=== PATIENT | female | born 1960 | race American Indian/Alaskan Native ===

== ENCOUNTER 2017-03-02 23:55 | Emergency (ER) | payer BC ==
[2017-03-03 00:10] VITALS: BP 154/113
[2017-03-03] MEDS ORDERED: MOTRIN PO ONE (02:34)
--- NOTE | 2017-03-03 02:43 | Emergency Department Report ---
ED ENT HPI - General Chief complaint: Skin/Abscess/Foreign Body Stated complaint: FACIAL ABSCESS Time Seen by Provider: 03/03/17 02:24 Source: patient Mode of arrival: Ambulatory Limitations: No Limitations - History of Present Illness Initial comments: This is a 56-year-old female well-nourished with nontoxic or ill in appearance presents with toothache and stated that she believes she has abscess to the upper gingiva. Patient stated he has that is described as aching and rates it as 9/10. Patient has stated she has a history of dental caries and stated she will follow up with her dentist by next week. Patient denies any pus, drainage , facial swelling, fever, chills, nausea, vomiting, stiff neck, headache, blurry vision, abdominal pain, chest pain, shortness of breath, numbness or tingling. Patient denies any allergies. History of hypertension, and GERD. Patient state he follows up with her primary care doctor and it takes Nifedipine for her hypertension. Patient also states she has a follow-up appointment Friday for her blood pressure. Patient stated Lortab as well as her pain. MD complaint: tooth pain -: Gradual, week(s) (2) Location: tooth # (7, 11) Severity: mild Severity scale (0 -10): 9 Quality: aching Consistency: constant Improves with: other (Lortab) Worsens with: none Context- Dental: history of dental caries, poor dental care Associated Symptoms: gum swelling, toothache. denies: fever, cough, pain with swallowing, sore throat, tinnitus, hearing loss, discharge from ear, rhinorrhea - Related Data Previous Rx's Medication Instructions Recorded Last Taken Type Fluconazole [Diflucan TAB] 150 mg PO ONCE #1 tablet 10/01/16 Unknown Rx Sulfamethoxazole/Trimethoprim 1 each PO BID #20 tablet 10/01/16 Unknown Rx [Bactrim DS TAB] Amoxicillin/K Clav Tab [Augmentin 1 tab PO Q12HR #20 tab 03/03/17 Unknown Rx 875 mg] Ibuprofen [Motrin 600 MG tab] 600 mg PO Q8H PRN #20 tablet 03/03/17 Unknown Rx Allergies Allergy/AdvReac Type Severity Reaction Status Date / Time No Known Allergies Allergy Unverified 10/01/16 17:03 ED Dental HPI - General Chief complaint: Skin/Abscess/Foreign Body Stated complaint: FACIAL ABSCESS Time Seen by Provider: 03/03/17 02:24 Source: patient Mode of arrival: Ambulatory Limitations: No Limitations - Related Data Previous Rx's Medication Instructions Recorded Last Taken Type Fluconazole [Diflucan TAB] 150 mg PO ONCE #1 tablet 10/01/16 Unknown Rx Sulfamethoxazole/Trimethoprim 1 each PO BID #20 tablet 10/01/16 Unknown Rx [Bactrim DS TAB] Amoxicillin/K Clav Tab [Augmentin 1 tab PO Q12HR #20 tab 03/03/17 Unknown Rx 875 mg] Ibuprofen [Motrin 600 MG tab] 600 mg PO Q8H PRN #20 tablet 03/03/17 Unknown Rx Allergies Allergy/AdvReac Type Severity Reaction Status Date / Time No Known Allergies Allergy Unverified 10/01/16 17:03 ED Review of Systems ROS: Stated complaint: FACIAL ABSCESS Other details as noted in HPI Constitutional: denies: chills, fever Eyes: denies: eye pain, eye discharge, vision change ENT: denies: ear pain, throat pain Respiratory: denies: cough, shortness of breath, wheezing Cardiovascular: denies: chest pain, palpitations Endocrine: no symptoms reported Gastrointestinal: denies: abdominal pain, nausea, diarrhea Genitourinary: denies: urgency, dysuria, discharge Musculoskeletal: denies: back pain, joint swelling, arthralgia Skin: denies: rash, lesions Neurological: denies: headache, weakness, paresthesias Psychiatric: denies: anxiety, depression Hematological/Lymphatic: denies: easy bleeding, easy bruising ED Past Medical Hx - Past Medical History Hx Hypertension: Yes Hx GERD: Yes Additional medical history: TENDONITIS - Surgical History Additional Surgical History: TUBAL LIGATION. TONSILLECTOMY - Social History Smoking Status: Current Every Day Smoker Substance Use Type: None - Medications Home Medications: Home Medications Medication Instructions Recorded Confirmed Last Taken Type Fluconazole [Diflucan TAB] 150 mg PO ONCE #1 tablet 10/01/16 Unknown Rx Sulfamethoxazole/Trimethoprim 1 each PO BID #20 tablet 10/01/16 Unknown Rx [Bactrim DS TAB] Amoxicillin/K Clav Tab [Augmentin 1 tab PO Q12HR #20 tab 03/03/17 Unknown Rx 875 mg] Ibuprofen [Motrin 600 MG tab] 600 mg PO Q8H PRN #20 tablet 03/03/17 Unknown Rx ED Physical Exam - General Limitations: No Limitations General appearance: alert, in no apparent distress - Head Head exam: Present: atraumatic, normocephalic, normal inspection - Eye Eye exam: Present: normal appearance, PERRL, EOMI. Absent: scleral icterus, conjunctival injection, nystagmus, periorbital swelling, periorbital tenderness Pupils: Present: normal accommodation - ENT ENT exam: Present: mucous membranes moist, TM's normal bilaterally, normal external ear exam - Expanded ENT Exam Expanded Mouth exam: Present: normal external inspection, tongue normal. Absent: drooling, trismus, muffled voice, tongue elevation, laceration Teeth exam: Present: normal inspection, dental caries, dental tenderness # (7, 11), gingival enlargement, other (Uvula midline. No abscess noted. no facial swelling.). Absent: fractured tooth # Throat exam: Positive: normal inspection. Negative: tonsillar erythema, tonsillomegaly, tonsillar exudate, R peritonsillar mass, L peritonsillar mass - Neck Neck exam: Present: normal inspection, full ROM. Absent: tenderness, meningismus, lymphadenopathy, thyromegaly - Respiratory Respiratory exam: Present: normal lung sounds bilaterally. Absent: respiratory distress, wheezes, rales, rhonchi, stridor, chest wall tenderness, accessory muscle use, decreased breath sounds, prolonged expiratory - Cardiovascular Cardiovascular Exam: Present: regular rate, normal rhythm, normal heart sounds. Absent: bradycardia, tachycardia, irregular rhythm, systolic murmur, diastolic murmur, rubs, gallop - GI/Abdominal GI/Abdominal exam: Present: soft, normal bowel sounds. Absent: distended, tenderness, guarding, rebound, rigid, diminished bowel sounds - Extremities Exam Extremities exam: Present: normal inspection, full ROM, normal capillary refill. Absent: tenderness, pedal edema, joint swelling, calf tenderness - Back Exam Back exam: Present: normal inspection, full ROM. Absent: tenderness, CVA tenderness (R), CVA tenderness (L), muscle spasm, paraspinal tenderness, vertebral tenderness, rash noted - Neurological Exam Neurological exam: Present: alert, oriented X3, CN II-XII intact, normal gait, reflexes normal - Psychiatric Psychiatric exam: Present: normal affect, normal mood - Skin Skin exam: Present: warm, dry, intact, normal color. Absent: rash ED Course Vital Signs 07/10/17 07/10/17 00:08 02:40 Temperature 98.1 F 98.5 F Pulse Rate 116 H 88 Respiratory 18 Rate Blood Pressure 154/113 O2 Sat by Pulse 100 100 Oximetry - Reevaluation(s) Reevaluation #1: 03/03/17 02:46 PAtient is sitting and is able to complete full sentence with no signs of distress. ED Medical Decision Making - Medical Decision Making ED course: This is a 56-year-old female that presents with toothache and gingivitis 1- patient was examined by myself. No signs of fluctuance or abscess to the face or gingiva region. No pus or drainage. 2- patient received ibuprofen 800 mg by mouth in ED. 3- patient received Augmentin and ibuprofen at the time of discharge and was instructed to follow-up with a dentist in 24 hours or is symptoms of difficulty swallowing, facial swelling, shortness of breath, fever, chills, chest pain, numbness, tingling, stiff neck or headache return to emergency room as soon as possible. 4- at time time of discharge, the patient does not seem toxic or ill in appearance. No acute signs of distress noted. Patient agrees to discharge treatment plan of care. No further questions noted by the patient. Critical care attestation.: If time is entered above; I have spent that time in minutes in the direct care of this critically ill patient, excluding procedure time. ED Disposition Clinical Impression: Toothache, Gingivitis, Dental caries Disposition: DC-01 TO HOME OR SELFCARE Is pt being admited?: No Does the pt Need Aspirin: No Condition: Stable Instructions: Ibuprofen (By mouth), Amoxicillin/Clavulanate Potassium (By mouth ), Dental Caries (ED), Gingivitis (ED), Toothache (ED) Additional Instructions: follow-up with a dentist in 24 hours or is symptoms of difficulty swallowing, facial swelling, shortness of breath, fever, chills, chest pain, numbness, tingling, stiff neck or headache return to emergency room as soon as possible. Take full course of antibiotics as prescribed. Prescriptions: Amoxicillin/K Clav Tab [Augmentin 875 mg] 1 tab PO Q12HR #20 tab Ibuprofen [Motrin 600 MG tab] 600 mg PO Q8H PRN #20 tablet PRN Reason: Pain Referrals: PRIMARY CARE, [Primary Care Provider] - 3-5 Days [facility] [Outside] - 24 Hours MARGUERITE CERDA JR, MD [Staff Physician] - 3-5 Days [facility] [Outside] - 3-5 Days Forms: Work/School Release Form(ED)
== END 2017-03-03 02:58 | disposition home or self-care (01) ==
LOC: ED 23:55
DX: K02.9 Dental caries, unspecified (principal); K05.10 Chronic gingivitis, plaque induced; I10 Essential (primary) hypertension; K21.9 Gastro-esophageal reflux disease without esophagitis; F17.200 Nicotine dependence, unspecified, uncomplicated
CPT/HCPCS: 99282

== ENCOUNTER 2018-05-18 15:33 | Outpatient (CLI) | payer OTHER | END 2018-05-18 15:34 | disposition home or self-care (01) | LOC: LABHHL 15:33 | PROVIDERS: ATTEND Surgery | DX: C50.911 Malignant neoplasm of unspecified site of right female breast (principal); I10 Essential (primary) hypertension; K21.9 Gastro-esophageal reflux disease without esophagitis | CPT/HCPCS: 88305; 88342; 88361 ==

== ENCOUNTER 2018-05-29 13:16 | Outpatient (CLI) | payer MEDICAID ==
--- NOTE | 2018-05-29 14:38 | Ultrasound Report ---
ULTRASOUND GUIDED NEEDLE CORE BIOPSY OF A RIGHT AXILLARY LYMPH NODE WITH CLIP PLACEMENT : 05/29/18 13:16:00 CLINICAL: Recently diagnosed right breast cancer. FINDINGS: The procedure was explained to the patient and informed consent was obtained. Ultrasound demonstrated a mildly suspicious lymph node. The skin in the axilla was prepped with Betadine and anesthetized with 1% lidocaine. Ultrasound guided needle core biopsy of the lymph node was performed through a small dermatotomy using 2% lidocaine with epinephrine for deep anesthesia and a 18-gauge Achieve biopsy device. 3 samples were obtained and placed in formalin. A clip was deployed within the lymph node. Hemostasis was achieved with minimal pressure and a sterile dressing was applied. The patient tolerated the procedure well and there were no apparent complications. She was discharged in good condition and was given instructions for wound care and followup. IMPRESSION: Uncomplicated ultrasound-guided needle core biopsy of a right lymph node with concordant clip placement.
== END 2018-05-29 13:17 | disposition home or self-care (01) ==
LOC: SPVWC 13:16
PROVIDERS: ATTEND Surgery
DX: I89.9 Noninfective disorder of lymphatic vessels and lymph nodes, unspecified (principal); C50.411 Malignant neoplasm of upper-outer quadrant of right female breast; F17.210 Nicotine dependence, cigarettes, uncomplicated; I10 Essential (primary) hypertension; K21.9 Gastro-esophageal reflux disease without esophagitis; Z79.899 Other long term (current) drug therapy
CPT/HCPCS: 38505; 76942; 88305

== ENCOUNTER 2018-06-02 06:54 | Day surgery (SDC) | payer MEDICAID, OTHER ==
[~2018-06-02 06:54] MED LIST: HEPARIN 10,000 UNITS/10 ML IV ONE
[2018-06-02] MEDS ORDERED: LACTATED RINGERS 1,000 ML IV SCH (08:26)
[2018-06-02] MEDS ORDERED: ANCEF/STERILE WATER 2 GM/20 ML IV NR (08:26)
[2018-06-02] MEDS ORDERED: VERSED IV NR (09:11)
[2018-06-02] MEDS ORDERED: SUBLIMAZE IV PRN (09:25)
--- NOTE | 2018-06-02 09:25 | Anesthesia Day of Surgery ---
Anesthesia Day of Surgery - Day of Surgery Patient Examined: Yes Patient H&P Reviewed: Yes Patient is NPO: Yes
--- NOTE | 2018-06-02 09:25 | Anesthesia Consultation ---
Anesthesia Consult and Med Hx Date of service: 06/02/18 - Airway Anesthetic Teeth Evaluation: Poor, Chipped, Partials ROM Head & Neck: Adequate Mental/Hyoid Distance: Adequate Mallampati Class: Class II Intubation Access Assessment: Probably Good - Pulmonary Exam CTA: Yes - Cardiac Exam Cardiac Exam: RRR - Pre-Operative Health Status ASA Pre-Surgery Classification: ASA3 Proposed Anesthetic Plan: General, Local, MAC - Pre-Anesthesia Comment Pre-Anesthesia Comments: GA w/ LMA vs local/MAC pending discussion with surgeon. - Pulmonary Hx Smoking: Yes (1/2 PDD x 20yrs) Hx Asthma: No Hx Respiratory Symptoms: No COPD: No - Cardiovascular System Hx Hypertension: Yes Hx Heart Attack/AMI: No - Central Nervous System Hx Seizures: No CVA: No Hx Back Pain: Yes Hx Psychiatric Problems: Yes (depression) - Gastrointestinal Hx Gastroesophageal Reflux Disease: No - Endocrine Hx Renal Disease: No Hx Liver Disease: No Hx Insulin Dependent Diabetes: No Hx Non-Insulin Dependent Diabetes: No Hx Thyroid Disease: No - Other Systems Hx Alcohol Use: No Hx Substance Use: No Hx Cancer: Yes (breast) - Additional Comments Anesthesia Medical History Comments: No prior anesthetic complications.
[2018-06-02] MEDS ORDERED: XYLOCAINE MPF 2% ONE (10:02)
[2018-06-02] MEDS ORDERED: DIPRIVAN 10 MG/ML IV ONE (10:02)
[2018-06-02] MEDS ORDERED: SUBLIMAZE ONE (10:02)
[2018-06-02] MEDS ORDERED: XYLOCAINE 1% 20 mL ONE (10:39)
[2018-06-02] MEDS ORDERED: HEPARIN 10,000 UNITS/10 ML ONE (10:39)
[2018-06-02] MEDS ORDERED: NACL 0.9% 250ML 250 ML ONE (10:39)
[2018-06-02] MEDS ORDERED: MARCAINE 0.25% INFILTRATI ONE ×3 (10:39→11:15)
[2018-06-02] MEDS ORDERED: XYLOCAINE 1% 20 mL INFILTRATI ONE ×2 (11:15)
[2018-06-02] MEDS ORDERED: ZOFRAN ONE (11:22)
[2018-06-02] MEDS ORDERED: NEO SYNEPHRINE/NS Syringe(OR USE) IV ONE (11:22)
[2018-06-02] MEDS ORDERED: DECADRON ONE (11:22)
[2018-06-02] MEDS ORDERED: HEPARIN 10,000 UNITS/10 ML IV ONE ×2 (11:23→11:40)
[2018-06-02] MEDS ORDERED: NACL 0.9% IV ONE (11:23)
--- NOTE | 2018-06-02 12:11 | Operative Report ---
Operative Report Operative Report: Date of operation: 06/02/18 Reoperative diagnosis: Right-sided breast cancer Postoperative diagnosis: Same as above Procedure performed: Placement of left subclavian Port-A-Cath with ultrasound guidance, fluoroscopy Surgeon: Sandy Thomson DO Anesthesia: LMA, local Findings: On intraoperative CXR - good placement of port and no PTX EBL: <10cc Complications: none Disposition: stable to PACU HPI and indication: Patient is a 58-year-old female who has recently been diagnosed with right-sided breast cancer. The patient is seen by Dr. Vogt and deemed a candidate for chemotherapy. All of the risks associated with the procedure were discussed with the patient including but not limited to pneumothorax, infection, bleeding, malpositioned port, injury to other structures. The patient understands and all questions were answered. Consent was signed and placed on chart. Procedure in detail: The patient was identified in the preoperative area, taken back to operating room, placed on operating table in supine position. After anesthesia was induced both arms were tucked and upper chest and neck were prepped and draped in usual sterile fashion. A timeout was performed. The was placed in Trendelenburg position. Local anesthetic was infiltrated into the skin at the intended puncture site. The left subclavian vein was imaged on the portable ultrasound and was accessed on the first stick. There was return of dark red, nonpulsatile blood. The wire was threaded under fluoroscopy without resistance the needle was then removed. Using fluoroscopy, the positioning of the wire was identified and the wire was going into the internal jugular vein. This was pulled back under continuous fluoroscopy, however the wire was dislodged from the vessel and removed from the skin. Pressure was held at the site. A second attempt was made to access the left subclavian vein, which was successful after the first stick. The wire was threaded without resistance in the positioning confirmed in the right atrium on fluoroscopy. Local anesthetic was infiltrated into the intended incision site. Using a 15 blade, an incision was made in the LEFT upper chest and dissection carried down through the skin and subcutaneous tissue using Bovie electrocautery. Hemostasis was achieved along the way. A pocket for the port was then created bluntly and with electrocautery. The catheter was flushed and tunneled from the pocket to the wire. A breakaway catheter/dilator sheath then inserted over the wire under fluoroscopy, and the wire and dilator removed. The catheter was then inserted through the breakaway catheter which was then removed. The catheter sat flush under the skin. Using continuous fluoroscopy, the catheter was pulled back until the tip was visualized in the right atrium. The catheter was then cut to size and the port attached in the usual fashion. The port was then sutured into place to the pre-pectoral fascia using 2-0 Vicryl interrupted sutures. The wound was irrigated and hemostasis ensured. The port was tested with heparinized saline and there was return of blood and it flushed easily. The port was then instilled with 3000 units of straight heparin. The deep dermal layer was then closed with interrupted 3-0 Vicryl stitches. The skin incisions were closed with 4-0 Monocryl subcuticular stitches and skin glue. The port was left accessed with a Melara needle. The needle entry site was dressed with a Biopatch and covered with Tegaderm. Intraoperative chest x-ray did show good positioning of the port, without evidence of pneumothorax. At the end of the case, all sponge, instrument, sharp counts were correct 2. The patient was awoken from anesthesia and taken to PACU in stable condition.
--- NOTE | 2018-06-02 12:15 | Fluoroscopy Report ---
AP CHEST: HISTORY: Breast cancer, Oicnlg-p-Wwoe placement AP view of the chest demonstrates a normal mediastinal and cardiac contour with clear lungs and normal bony and soft tissue structures. The left subclavian Gubieh-v-Wqlf terminates in the right atrium. No pneumothorax. IMPRESSION: Unremarkable AP chest. Zbtcie-h-Cuey is described.
--- NOTE | 2018-06-02 12:16 | Short Stay Summary ---
Short Stay Documentation Date of service: 06/02/18 - History Principal diagnosis: right breast cancer H&P: obtained from office - Allergies and Medications Current Medications: Allergies No Known Allergies Allergy (Verified 06/01/18 14:48) Home Medications Medication Instructions Recorded Confirmed Last Taken Type Amitriptyline [Elavil] 50 mg PO QHS 06/01/18 06/01/18 06/01/18 History RX: NIFEdipine [Nifedipine ER] 90 mg PO DAILY 06/01/18 06/02/18 05/31/18 History Sertraline [Zoloft] 50 mg PO QDAY 06/01/18 06/01/18 06/01/18 History Active Medications Cefazolin Sodium (Ancef/Sterile Water 2 Gm/20 Ml) 2 gm IV PREOP NR Stop: 06/02/18 23:59 Fentanyl (Sublimaze) 50 mcg IV Q15MIN PRN PRN Reason: Pain , Severe (7-10) Stop: 06/02/18 16:00 Lactated Ringer's (Lactated Ringers) 1,000 mls @ 42 mls/hr IV DIRECT CORA Last Admin: 06/02/18 09:05 Dose: 42 mls/hr Midazolam HCl (Versed) 2 mg IV PREOP NR Stop: 06/02/18 23:59 Last Admin: 06/02/18 09:32 Dose: 2 mg - Brief post op/procedure progress note Date of procedure: 06/02/18 Pre-op diagnosis: right breast cancer Post-op diagnosis: same Procedure: L subclavian port a cath placement with ultrasound guidance, fluoroscopy Anesthesia: GETA, local Findings: good placement of the port on post op CXR without evidence of PTX Surgeon: RAEGAN BRIDGES Estimated blood loss: minimal Pathology: none Condition: stable - Hospital course Hospital course: Pt was observed in the PACU and discharged to home in stable condition once criteria was met. - Disposition Condition at discharge: Good Disposition: DC-01 TO HOME OR SELFCARE Short Stay Discharge Plan Activity: no restrictions Diet: regular Wound: open to air (may shower tomorrow, pat incisions dry do not scrub.) Additional Instructions: Call surgeon's office if you have fever>100.4, drainage or redness around port site. Follow up with: RYANNE SANZ MD [Primary Care Provider] - 7 Days MOIZ SMITH MD [Staff Physician] - 7 Days Prescriptions: RX: Ibuprofen [Ibu] 800 mg PO Q8H PRN #30 tablet PRN Reason: Pain, Moderate (4-6)
--- NOTE | 2018-06-02 15:10 | Post Anesthesia Evaluation ---
- Post Anesthesia Evaluation Patient Participated: Yes Airway Patent: Yes Stable Respiratory Function: Yes Nausea/Vomiting: No Temp > 96.8F: Yes Pain Manageable: Yes Adequeate Hydration: Yes Anesthesia Complications: No
[2018-06-02 16:08] VITALS: BP 127/77
== END 2018-06-02 06:55 | disposition home or self-care (01) ==
LOC: OR 06:54
PROVIDERS: ATTEND Surgery
DX: C50.911 Malignant neoplasm of unspecified site of right female breast (principal); K21.9 Gastro-esophageal reflux disease without esophagitis; I10 Essential (primary) hypertension; F32.9 Major depressive disorder, single episode, unspecified; F17.210 Nicotine dependence, cigarettes, uncomplicated; Z79.899 Other long term (current) drug therapy; Z98.51 Tubal ligation status; Z80.1 Family history of malignant neoplasm of trachea, bronchus and lung
CPT/HCPCS: 36561; 77001; C1788; J0690; J1100; J1644; J2250; J2370; J2405; J2704; J3010; J7050; J7120

== ENCOUNTER 2018-09-09 06:34 | Day surgery (SDC) | payer OTHER ==
[~2018-09-09 06:34] MED LIST changes: -HEPARIN 10,000 UNITS/10 ML IV ONE; +LACTATED RINGERS 1,000 ML IV SCH; +VERSED IV NR
[2018-09-09] MEDS ORDERED: SUBLIMAZE IV NR (07:00)
[2018-09-09] MEDS ORDERED: NEURONTIN PO NR (07:00)
[2018-09-09] MEDS ORDERED: METHYLENE BLUE ONE (07:30)
[2018-09-09] MEDS ORDERED: XYLOCAINE 1% 20 mL ONE ×2 (07:31→07:56)
[2018-09-09] MEDS ORDERED: MARCAINE 0.25% INFILTRATI ONE ×2 (07:31→08:01)
[2018-09-09] MEDS ORDERED: XYLOCAINE 1% 20 mL INFILTRATI ONE (07:36)
[2018-09-09] MEDS ORDERED: ANCEF/STERILE WATER 2 GM/20 ML IV NR (07:38)
--- NOTE | 2018-09-09 08:25 | Ultrasound Report ---
ULTRASOUND-GUIDED NEEDLE LOCALIZATION AND HOOKWIRE PLACEMENT RIGHT BREAST:09/09/18 CLINICAL: Right breast cancer status post chemotherapy. The cancer was located at 12 o'clock 12 cm from the nipple. COMPARISON: 06/09/18 MRI FINDINGS: Ultrasound demonstrated a hydro-anayeli biopsy clip and no residual mass at the site of the treated cancer. Using ultrasound guidance, 1% lidocaine local anesthesia and sterile technique, a 5.0-cm Mcdonald needle with a hookwire was placed to localize the hydro-anayeli biopsy clip. The hookwire was deployed and the needle was removed. Satisfactory placement was confirmed with a single MLO mammographic view. The patient tolerated the procedure well and there were no apparent complications. IMPRESSION: Uncomplicated hookwire placement right breast.
--- NOTE | 2018-09-09 08:28 | Mammography Report ---
RIGHT DIGITAL DIAGNOSTIC MAMMOGRAM : 09/09/18 CLINICAL: Right breast cancer at 12 o'clock 15 cm from the nipple. COMPARISON:08/10/18 FINDINGS: A single MLO view demonstrates the hookwire at a hydro-anayeli clip at 12 o'clock approximately 15.0 cm from the nipple.No residual mass and clip. IMPRESSION: Satisfactory localization of the known cancer. BI-RADS CATEGORY: 6--Known Cancer ACR BI-RADS MAMMOGRAPHIC CODES: 0 = Needs additional imaging evaluation; 1 = Negative; 2 = Benign; 3 = Probably benign; 4 = Suspicious; 5 = Malignant; 6 = Known biopsy-proven malignancy COMMENT: 1. Dense breast tissue, i.e., adenosis, fibrocystic changes, etc., may obscure an underlying neoplasm. 2. Approximately 10% of cancers are not detected with mammography. 3. A negative mammography report should not delay biopsy if a clinically suspicious mass is present. COMMENT: Patient follow-up letters are generated by our [employer] application.
[2018-09-09] MEDS ORDERED: DECADRON ONE ×2 (08:30→09:55)
[2018-09-09] MEDS ORDERED: SUBLIMAZE ONE ×3 (08:54→11:43)
[2018-09-09] MEDS ORDERED: VERSED ONE (08:54)
[2018-09-09] MEDS ORDERED: DIPRIVAN 10 MG/ML IV ONE (08:55)
[2018-09-09] MEDS ORDERED: XYLOCAINE MPF 2% ONE (08:55)
--- NOTE | 2018-09-09 09:05 | Progress Note ---
Subjective Date of service: 09/09/18 (block note) Principal diagnosis: breast cancer Interval history: 58 y/o female presenting for R simple mastectomy. Surgeon requests block for postop analgesia. Informed consent obtained. Sitting position R erector spinae plane block performed under clean conditions at T4 after chlorhexidine prep. 30 ml 0.25% bupivacaine with 4 mg decadron injected under ultrasound guidance via 21 ga b bevel needle. Pt laid supine and R PECS 1 block performed under clean conditions and ultrasound guidance with 15 ml 0.25% bupivacaine. Pt tolerated well with midazolam sedation. Objective - Constitutional Vitals: Vital Signs - 12hr 09/09/18 09/09/18 06:55 07:53 Temperature 98.3 F 98.3 F Pulse Rate 85 85 Respiratory 16 16 Rate Blood Pressure 114/73 114/73 O2 Sat by Pulse 98 98 Oximetry
--- NOTE | 2018-09-09 09:25 | Anesthesia Day of Surgery ---
Anesthesia Day of Surgery - Day of Surgery Patient Examined: Yes Patient H&P Reviewed: Yes Patient is NPO: Yes
--- NOTE | 2018-09-09 09:25 | Anesthesia Consultation ---
Anesthesia Consult and Med Hx Date of service: 09/09/18 - Airway Anesthetic Teeth Evaluation: Partials ROM Head & Neck: Adequate Mental/Hyoid Distance: Adequate Mallampati Class: Class II Intubation Access Assessment: Probably Good - Pulmonary Exam CTA: Yes - Cardiac Exam Cardiac Exam: RRR - Pre-Operative Health Status ASA Pre-Surgery Classification: ASA3 Proposed Anesthetic Plan: General Nerve Block: PECS I, erector spinae plane - Pulmonary Hx Smoking: Yes (1/2 PDD x 20yrs; quit 6 months ago) Hx Asthma: No Hx Respiratory Symptoms: No (no recent cough or flu-like symptoms) COPD: No Hx Sleep Apnea: No (LIN PRE SCREEN LOW RISK) - Cardiovascular System Hx Hypertension: Yes (took antihypertensives this morning) Hx Heart Attack/AMI: No - Central Nervous System Hx Seizures: No CVA: No Hx Back Pain: Yes - Gastrointestinal Hx Gastroesophageal Reflux Disease: No - Endocrine Hx Renal Disease: No Hx Liver Disease: No Hx Insulin Dependent Diabetes: No Hx Non-Insulin Dependent Diabetes: No Hx Thyroid Disease: No - Other Systems Hx Cancer: Yes (breast) Hx Obesity: No - Additional Comments Anesthesia Medical History Comments: No hx anesthetic complications. Consented for pre-op lauryn block for postop analgesia.
[2018-09-09] MEDS ORDERED: METHYLENE BLUE IV ONE (09:46)
[2018-09-09] MEDS ORDERED: NACL INFILTRATI ONE (09:46)
[2018-09-09] MEDS ORDERED: ZOFRAN ONE (09:55)
[2018-09-09] MEDS ORDERED: NACL 0.9% IR ONE (10:37)
[2018-09-09] MEDS ORDERED: LACTATED RINGERS 1,000 ML ONE (10:53)
--- NOTE | 2018-09-09 11:34 | Mammography Report ---
SPECIMEN RADIOGRAPH RIGHT BREAST: 09/09/18 11:23 CLINICAL: Surgical excision of a known cancer. FINDINGS: The targeted lesion with a biopsy clip and a hookwire are identified within the specimen. IMPRESSION: Excision of the targeted lesion.
[2018-09-09] MEDS ORDERED: DILAUDID ONE (11:46)
[2018-09-09] MEDS: DILAUDID IV PRN ×2 (11:50→11:55)
--- NOTE | 2018-09-09 11:50 | Operative Report ---
Operative Report Operative Report: September 09, 2018 Preoperative diagnosis: Right breast cancer of the upper inner quadrant Postoperative diagnosis: Same Procedure: Right needle localization partial mastectomy of the upper inner quadrant and SLNB Surgeon: Dasia Boss MD Anesthesia: General Findings: Right wire and clip present within radiograph specimen; x 3 SLNs Complications: None EBL: Minimal Disposition: PACU in good condition Indications for operative procedure: This is a 58 year old lady with newly diagnosed right breast cancer of the upper inner quadrant, Stage II [id number] triple negative, at the 12:00 position 12 cm from the nipple. Recommendations are to proceed with breast conservation. She partially complete neoadjuvant chemotherapy with course complicated with colitis and hospitalization. She will complete Taxol following surgery, recommendations were to proceed with surgery and then completion of chemotherapy followed by radiation therapy. Recent mammogram with prior breast cancer mass not present. She wished to proceed with the above procedure. Procedure in detail: The patient was taken to radiology for wire placement for localization known area of cancer. Anesthesia placed right pectoral block. Patient was then taken to the operating room. Gen. anesthesia was administered. The right nipple was injected with radioisotope adn 1 cc of saline mixed with methylene blue. Right breast and axilla were prepped and draped in the normal sterile operative fashion. The wire was identified. Timeout was performed. Ultrasound was used to anayeli the area of incision as well. Gamma probe was inserted into the axilla. The area of hot spot was identified. A right axillary incision was made with a 15 blade knife with dissection taken down to the subcutaneous tissues. The axillary fascia was opened with the Bovie cautery. 3 SLNs were identified. All remaining counts were less than 10% of the highest cou nt. Lymph nodes were sent to pathology for permanent processing. Hemostasis was obtained in the right axillary cavity. Axillary cavity was appropriately irrigated and suctioned. Hemostasis was noted. Axillary fascia was approximated and closed using interrupted 3-0 Vicryl and the skin brought together and closed using a running 4-0 Monocryl followed by skin affix. Attention was then taken towards the right breast. A 12:00 breast incision was made with a 15 blade knife and dissection taken down to subcutaneous tissues. First began raising of the superior flap with dissection take down to the p ectoralis muscle, followed by raising of the inferior flap with removal of the wire from the skin followed by raising of the medial flap and lateral flap with all flaps taken down to the pectoralis muscle. The breast area of concern was appropriately removed posteriorly from the pectoralis muscle with the aid of the Bovie cautery. The wire was not encountered. Specimen was marked and then sent to pathology and radiology; radiograph specimen with wire and clip present. Breast cavity was irrigated and hemostasis was obtained. The posterior deep breast tissues were approximated and closed using interrupted 3-0 Vicryl. The subcutaneous tissues were approximated and closed using interrupted 3-0 Vicryl followed by closing of the skin with a running 4-0 Monocryl and skin affix. The patient tolerated surgery very well and she was awaken from anesthesia without any complication and transported to PACU in good condition.
--- NOTE | 2018-09-09 11:52 | Short Stay Summary ---
Short Stay Documentation Date of service: 09/09/18 - History H&P: obtained from office - Allergies and Medications Current Medications: Allergies No Known Allergies Allergy (Verified 06/01/18 14:48) Home Medications Medication Instructions Recorded Confirmed Last Taken Type RX: Amitriptyline [Elavil] 50 mg PO QHS 06/01/18 09/09/18 09/07/18 History RX: NIFEdipine [Nifedipine ER] 90 mg PO DAILY 06/01/18 09/09/18 09/08/18 History RX: Sertraline [Zoloft] 50 mg PO QDAY 06/01/18 09/03/18 06/01/18 History RX: Ibuprofen [Ibu] 800 mg PO Q8H PRN #30 tablet 06/02/18 09/03/18 Unknown Rx HYDROcodone/ACETAMINOPHEN 1 each PO PRN PRN 09/03/18 09/03/18 Unknown History [Hydrocodone-Acetamin 5-325 mg] Potassium Chloride [Klor-Con] 20 meq PO DAILY 09/03/18 09/03/18 Unknown History Promethazine [Phenergan TAB] 25 mg PO Q6HR PRN 09/03/18 09/09/18 09/08/18 History HYDROcodone/APAP 5-325 [[place] 1 each PO Q6HR PRN #30 tablet 09/09/18 Unknown Rx 5/325] Active Medications Cefazolin Sodium (Ancef/Sterile Water 2 Gm/20 Ml) 2 gm IV PREOP NR Stop: 09/09/18 23:59 Celecoxib (Celebrex) 200 mg PO PREOP NR Stop: 09/09/18 23:59 Last Admin: 09/09/18 07:20 Dose: 200 mg Documented by: Fentanyl (Sublimaze) 100 mcg IV ONCE NR Stop: 09/09/18 23:59 Last Admin: 09/09/18 08:38 Dose: 100 mcg Documented by: Gabapentin (Neurontin) 300 mg PO PREOP NR Stop: 09/09/18 23:59 Last Admin: 09/09/18 07:20 Dose: 300 mg Documented by: Hydromorphone HCl (Dilaudid) 0.25 mg IV Q10MIN PRN PRN Reason: Pain, Moderate (4-6) Stop: 09/09/18 20:00 Lactated Ringer's (Lactated Ringers) 1,000 mls @ 100 mls/hr IV DIRECT CORA Last Admin: 09/09/18 08:54 Dose: 100 mls/hr Documented by: Midazolam HCl (Versed) 2 mg IV PREOP NR Stop: 09/09/18 23:59 - Brief post op/procedure progress note Date of procedure: 09/09/18 Pre-op diagnosis: Right breast cancer of the upper inner quadrant Post-op diagnosis: same Procedure: Right partial mastectomy with SLNB Anesthesia: GETA Findings: Wire and clip present; x3 SLNs Surgeon: MOIZ SMITH Estimated blood loss: minimal Pathology: list (right partial mastectomy; x3 SLNs) Specimen disposition: to lab Condition: stable - Disposition Condition at discharge: Good Disposition: DC-01 TO HOME OR SELFCARE Short Stay Discharge Plan Activity: other (no heavy lifting) Diet: regular Wound: keep clean and dry (may shower in 48 hours; no baths; wear breast binder) Follow up with: TONY STUART MD [Primary Care Provider] - 7 Days MOIZ SMITH MD [Staff Physician] - 7 Days Prescriptions: HYDROcodone/APAP 5-325 [[place] 5/325] 1 each PO Q6HR PRN #30 tablet PRN Reason: Pain
[2018-09-09] MEDS ORDERED: ZOFRAN IV PRN (12:05)
[2018-09-09] MEDS ORDERED: DILAUDID IV PRN (12:05)
[2018-09-09] MEDS ORDERED: NORCO 5/325 PO PRN (12:25)
[2018-09-09 19:33] VITALS: BP 135/75
== END 2018-09-09 13:50 | disposition home or self-care (01) ==
LOC: OR 06:34
PROVIDERS: ATTEND Surgery
DX: C50.211 Malignant neoplasm of upper-inner quadrant of right female breast (principal); C50.411 Malignant neoplasm of upper-outer quadrant of right female breast; I10 Essential (primary) hypertension; K21.9 Gastro-esophageal reflux disease without esophagitis; F32.9 Major depressive disorder, single episode, unspecified; Z79.899 Other long term (current) drug therapy; Z98.51 Tubal ligation status; Z85.3 Personal history of malignant neoplasm of breast; Z98.890 Other specified postprocedural states
CPT/HCPCS: 19285; 19301; 38525; 38792; 76098; 77065; 78800; 88307; 88342; A9541; J0690; J1100; J1170; J2250; J2405; J2704; J3010; J7120; Q9968; 64450; 88333

== ENCOUNTER 2019-02-02 10:51 | Outpatient (CLI) | payer OTHER ==
--- NOTE | 2019-02-02 11:50 | XRay Report ---
RIGHT WRIST, 2 VIEWS History: Pain in right wrist. Findings: Osteopenia is evident. There is a transverse fracture in the distal radius with anterior angulation measuring 50 degrees. There is no obvious calcified callus suggesting an acute injury. The distal ulna and carpal bones are grossly intact. Moderate osteoarthritis is noted. Impression: Angulated distal radial fracture. Osteoarthritis. Osteopenia.
== END 2019-02-02 10:52 | disposition home or self-care (01) ==
LOC: XRAY 10:51
PROVIDERS: ATTEND Orthopaedic Surgery
DX: S52.591A Other fractures of lower end of right radius, initial encounter for closed fracture (principal); M19.031 Primary osteoarthritis, right wrist; M85.88 Other specified disorders of bone density and structure, other site; I10 Essential (primary) hypertension; K21.9 Gastro-esophageal reflux disease without esophagitis; Z90.89 Acquired absence of other organs; X58.XXXA Exposure to other specified factors, initial encounter; Y93.89 Activity, other specified; Y92.89 Other specified places as the place of occurrence of the external cause; Y99.8 Other external cause status

== ENCOUNTER 2019-02-11 15:10 | Day surgery (SDC) | payer OTHER ==
[~2019-02-11 15:10] MED LIST changes: +NEURONTIN PO NR; +SUBLIMAZE IV PRN
[2019-02-11] MEDS ORDERED: SUBLIMAZE IV PRN (15:36)
--- NOTE | 2019-02-11 15:38 | Anesthesia Consultation ---
Anesthesia Consult and Med Hx Date of service: 02/11/19 - Airway Anesthetic Teeth Evaluation: Partials ROM Head & Neck: Adequate Mental/Hyoid Distance: Adequate Mallampati Class: Class III Intubation Access Assessment: Possibly Difficult - Pulmonary Exam CTA: Yes - Cardiac Exam Cardiac Exam: RRR - Pre-Operative Health Status ASA Pre-Surgery Classification: ASA3 Proposed Anesthetic Plan: General Nerve Block: Supraclavicular - Pulmonary Hx Smoking: Yes (1/2 PDD x 20yrs; quit 12 months ago) Hx Asthma: No Hx Respiratory Symptoms: No COPD: No Hx Sleep Apnea: No (LIN PRE SCREEN LOW RISK) - Cardiovascular System Hx Hypertension: Yes (took nifedipine last nigiht) Hx Heart Attack/AMI: No Hx Percutaneous Transluminal Coronary Angioplasty (PTCA): No Hx Cardia Arrhythmia: No - Central Nervous System Hx Seizures: No CVA: No Hx Back Pain: Yes - Gastrointestinal Hx Gastroesophageal Reflux Disease: No - Endocrine Hx Renal Disease: No Hx Liver Disease: No Hx Insulin Dependent Diabetes: No Hx Non-Insulin Dependent Diabetes: No Hx Thyroid Disease: No - Other Systems Hx Cancer: Yes (breast) Hx Obesity: No - Additional Comments Anesthesia Medical History Comments: No hx anesthetic complications. Daughter signed consent on mother's behalf 2/2 right wrist pain.
--- NOTE | 2019-02-11 15:38 | Anesthesia Day of Surgery ---
Anesthesia Day of Surgery - Day of Surgery Patient Examined: Yes Patient H&P Reviewed: Yes Patient is NPO: Yes
[2019-02-11] MEDS ORDERED: DECADRON ONE ×2 (15:41→16:33)
[2019-02-11] MEDS ORDERED: MARCAINE 0.25% INFILTRATI ONE (15:41)
[2019-02-11] MEDS ORDERED: SUBLIMAZE ONE (15:53)
[2019-02-11] MEDS ORDERED: DIPRIVAN 10 MG/ML IV ONE (15:53)
[2019-02-11 15:55] LABS: Basophils # (Auto) 0.1 K/mm3 (0.0-0.1); Basophils % (Auto) 0.7 % (0.0-1.8); Eosinophils # (Auto) 0.2 K/mm3 (0.0-0.4); Eosinophils % (Auto) 2.1 % (0.0-4.3); Hematocrit 35.6 % (30.3-42.9); Hemoglobin 12.1 gm/dl (10.1-14.3); Lymphocytes # (Auto) 1.4 K/mm3 (1.2-5.4); Lymphocytes % (Auto) 15.2 % (13.4-35.0); Mean Corpuscular HGB Conc 34 % (30-34); Mean Corpuscular Volume 105 fl (79-97); Monocytes # (Auto) 0.8 K/mm3 (0.0-0.8); Monocytes % (Auto) 8.3 % (0.0-7.3); Platelet Count 290 K/mm3 (140-440); Red Blood Count 3.39 M/mm3 (3.65-5.03); Red Cell Distribution Width 16.6 % (13.2-15.2)
[2019-02-11] MEDS ORDERED: ZOFRAN ONE ×2 (15:55→16:33)
[2019-02-11] MEDS ORDERED: XYLOCAINE MPF 2% ONE (15:55)
[2019-02-11] MEDS ORDERED: NEO SYNEPHRINE/NS Syringe(OR USE) IV ONE (16:38)
[2019-02-11 16:53] LABS: BUN/Creatinine Ratio 13; Blood Urea Nitrogen 9 mg/dL (7-17); Calcium 8.6 mg/dL (8.4-10.2); Hemolysis Index 243
[2019-02-11] MEDS ORDERED: ANCEF/STERILE WATER 2 GM/20 ML IV NR (17:00)
--- NOTE | 2019-02-11 17:45 | Procedure Note ---
Date of procedure: 02/11/19 Pre-op diagnosis: 2 month-old displaced right distal radius fracture Post-op diagnosis: same Procedure: Open reduction internal fixation right distal radius Procedure The patient was brought to the OR placed in the OR table in supine position following the induction and intubation by anesthesia the patient's right upper extremity was prepped and draped in the usual sterile manner. A timeout procedure was done to identify the patient and the correct operative site. The arm was exsanguinated followed by inflation of the pneumatic tourniquet to 250 mmHg. A volar incision was made over the distal radius this was taken down sharply through skin and subcutaneous base flexor carpi radialis tendon was seen and identified Using sharp dissection the neurovascular structures were identified and retracted out of the operative field the quadratus tendon was then released from the distal radius and using Hohmann retractors the fracture fragments were identified and were manipulated into a more reduced position.A K wire was used for temporary fixation.Next a Biomet distal radius plate was applied to the volar surface this was temporarily fixed with 2 K wires care was taken to position the plate along the watershed line multiple locked screws were applied to the distal fragment and the plate was then secured proximally using a nonlocked screw followed by 2 additional locking screws in the proximal fragment and AP and lateral x-ray was obtained showing good reduction at the fracture site as well as placement of the hardware. The wound was then copiously irrigated and was closed in a standard routine fashion. Dressings were applied as well as a well-padded volar splint. The patient was extubated and was taken to postanesthesia recovery in stable condition Anesthesia: MAC, regional Surgeon: MADELYN HARKINS Linoleum Printer: SUSAN HDZ Estimated blood loss: minimal Pathology: none Condition: stable Disposition: PACU
[2019-02-11 20:08] VITALS: BP 130/71
--- NOTE | 2019-02-12 07:43 | XRay Report ---
RIGHT WRIST, 2 VIEWS History: Right radial fracture. Findings: Compared to the exam dated 02/02/19. Fluoroscopy was provided by radiology during orthopedic surgery. 2 fluoroscopic images were saved. The distal radial fracture has been internally fixated with metal plate and screws and is in near-anatomic alignment. The distal ulna and carpal bones are unremarkable. Mild soft tissue swelling. Impression: Internal fixation of the distal radial fracture.
--- NOTE | 2019-02-12 09:19 | Post Anesthesia Evaluation ---
- Post Anesthesia Evaluation Patient Participated: Yes Airway Patent: Yes Stable Respiratory Function: Yes Nausea/Vomiting: No Temp > 96.8F: Yes Pain Manageable: Yes Adequeate Hydration: Yes Anesthesia Complications: No Block Receding Appropriately: No (block for post op analgesia) Other Comments: Late entry. Patient assessed in PACU prior to discharge.
== END 2019-02-11 15:11 | disposition home or self-care (01) ==
LOC: OR 15:10
PROVIDERS: ATTEND Orthopaedic Surgery
DX: S52.501A Unspecified fracture of the lower end of right radius, initial encounter for closed fracture (principal); I10 Essential (primary) hypertension; K21.9 Gastro-esophageal reflux disease without esophagitis; F32.9 Major depressive disorder, single episode, unspecified; Z85.3 Personal history of malignant neoplasm of breast; Z79.899 Other long term (current) drug therapy; Z87.891 Personal history of nicotine dependence; Z90.11 Acquired absence of right breast and nipple; Z98.51 Tubal ligation status; Y93.89 Activity, other specified; X58.XXXA Exposure to other specified factors, initial encounter; Y92.89 Other specified places as the place of occurrence of the external cause; Y99.8 Other external cause status
CPT/HCPCS: 25607; 36415; 73100; 80048; 85025; C1713; J0690; J1100; J2250; J2370; J2405; J2704; J3010; J7120; 64450